=== PATIENT | female | born 1950 | race Caucasian/White ===

== ENCOUNTER 2022-10-29 10:10 | Outpatient (CLI) | payer MEDICARE, BC, SELFPAY | END 2022-10-29 10:11 | disposition home or self-care (01) | PROVIDERS: PCP Family Medicine; Visit Provider Family Medicine | DX: I10 Essential (primary) hypertension (principal); E78.5 Hyperlipidemia, unspecified | CPT/HCPCS: 80048; 80061 ==

== ENCOUNTER 2024-05-24 10:08 | Outpatient (CLI) | payer MEDICARE, BC, SELFPAY | END 2024-05-24 10:09 | disposition home or self-care (01) | PROVIDERS: PCP Family Medicine; Visit Provider Family Medicine | DX: E78.5 Hyperlipidemia, unspecified (principal); I10 Essential (primary) hypertension; R53.83 Other fatigue | CPT/HCPCS: 80048; 80061; 85025 ==

== ENCOUNTER 2025-05-21 11:50 | Outpatient (CLI) | payer MEDICARE, BC, SELFPAY | END 2025-05-21 11:51 | disposition home or self-care (01) | LOC: NFLDREF 05-23 19:09 | PROVIDERS: PCP Family Medicine; Referring Provider Family Medicine; Visit Provider Family Medicine | DX: I10 Essential (primary) hypertension (principal); E78.2 Mixed hyperlipidemia | CPT/HCPCS: 80048; 80061; 85025 ==